=== PATIENT | male | born 1975 | race Caucasian/White ===

== ENCOUNTER 2020-05-21 08:42 | Inpatient (IN) | payer BC ==
[~2020-05-21] VITALS: Ht 182.9 cm; Wt 90.8 kg
--- NOTE | 2020-05-21 09:02 | NUR ---
INITIAL PT CONTACT. PT PRESENTS TO ED C/O SWELLING OF THE FACE AND NECK. PT STATES SYMPTOMS BEGAN WEDNESDAY, 3 DAYS AGO. PT STATES THAT SWELLING WAS INITIALLY IN HIS GUMS, PT WAS SEEN BY DENTIST AND GIVE ABX, NOW SWELLING IS WORSE AND MOVED DOWN NECK. PT C/O DIFFICULTY SWALLOWING WITHOUT PAIN MEDICATION. NO RESPIRATORY DISTRESS NOTED. MODERATE SWELLING OF THE FACE AND NECK PRESENT UPON ASSESSMENT. PT UPRIGHT ON GURNEY, AT BEDSIDE. PT DENIES ANY NEEDS AT THIS TIME. CONTINUOUS PULSE OX IN PLACE. WILL CONTINUE TO MONITOR.
[2020-05-21] MEDS ORDERED: MORPHINE SULFATE 4 MG/ML, 1ML ONE ×3 (09:29→21:07)
[2020-05-21] MEDS ORDERED: CLINDAMYCIN PMX 600MG/50ML 50 ML ONE (09:29)
[2020-05-21] MEDS ORDERED: SODIUM CHLORIDE FLUSH 10ML SYR IVF ONE (09:30)
[2020-05-21] MEDS ORDERED: CLINDAMYCIN PMX 600MG/50ML 50 ML IVPB ONE (09:30)
[2020-05-21] MEDS: MORPHINE SULFATE 4 MG/ML, 1ML IVPush PRN ×2 (09:31→11:10)
[2020-05-21 09:36] LABS: BASOPHILS % (AUTO) 0 % (0-1); EOSINOPHILS % (AUTO) 0 % (1-7); LYMPHOCYTES % (AUTO) 13 % (22-44); MEAN CORPUSCULAR HEMOGLOBIN 33.6 pg (27.5-34.5); MEAN PLATELET VOLUME 6.8 fL (7.4-10.4); MONOCYTES % (AUTO) 10 % (2-9); NEUTROPHILS % (AUTO) 76 % (42-75); PLATELET COUNT 188 x10^3/uL (130-400); RED BLOOD COUNT 4.57 x10^6/uL (4.38-5.82); RED CELL DISTRIBUTION WIDTH 13.2 % (9.4-14.8)
[2020-05-21 09:38] LABS: MD NO
[2020-05-21 09:45] LABS: ALBUMIN 3.8 g/dL (3.4-5.0); ANION GAP 4 mmol/L (5-15); CALCIUM 9.4 mg/dL (8.5-10.1); CHLORIDE 106 mmol/L (98-107); CREATININE 0.83 mg/dL (0.7-1.3)
--- NOTE | 2020-05-21 09:55 | NUR ---
PT TO CT
--- NOTE | 2020-05-21 10:03 | NUR ---
PT RETURNED FROM CT. PT REPORTS DECREASED PAIN BUT SAME "DIFFICULTY SWALLOWING". PT DENIES ANY NEEDS AT THIS TIME. CALL LIGHT IN REACH. AT BEDSIDE.
[2020-05-21] MEDS ORDERED: OMNIPAQUE 350 MG/ML, 75ML BOTTLE ONE (10:05)
--- NOTE | 2020-05-21 10:32 | NUR ---
ERP AT BEDSIDE DISCUSSING ADMISSION AND PLAN FOR TREATMENT
[2020-05-21] MEDS ORDERED: DEXAMETHASONE 4 MG/ML, 5ML ONE (10:41)
--- NOTE | 2020-05-21 10:51 | NUR ---
PT UP TO BATHROOM
[2020-05-21] MEDS ORDERED: DEXAMETHASONE 4 MG/ML, 1ML IVPush ONE (11:00)
[2020-05-21] MEDS ORDERED: SODIUM CHLORIDE FLUSH 10ML SYR IVF PRN (11:00)
--- NOTE | 2020-05-21 11:02 | NUR ---
PT TO IMAGING
--- NOTE | 2020-05-21 11:07 | NUR ---
PT RETURNED FROM IMAGING. PT SITTING UPRIGHT ON GURNEY ON CELL PHONE. PT REQUESTS MORE PAIN MEDICATION, MEDICATED PER EMAR. NO ADDITIONAL NEEDS AT THIS TIME. AT BEDSIDE AND CALL LIGHT WITHIN REACH.
[2020-05-21] MEDS ORDERED: ACETAMINOPHEN 325 MG TABLET PO PRN ×2 (11:30→20:00)
[2020-05-21] MEDS ORDERED: ONDANSETRON ODT 4 MG PO PRN (11:30)
[2020-05-21] MEDS ORDERED: POLYETHYLENE GLYCOL 17 GM PACKET PO PRN (11:30)
[2020-05-21] MEDS ORDERED: HYDROcodone/APAP 5/325 TABLET PO PRN (11:30)
[2020-05-21] MEDS ORDERED: SENNA/DOCUSATE TABLET PO PRN (11:30)
[2020-05-21] MEDS ORDERED: ONDANSETRON 2MG/ML, 2ML IVPush PRN ×2 (11:30→20:00)
--- NOTE | 2020-05-21 11:45 | NUR ---
Damien anderson in ED - 05/21/20 at 1148 by PIPPA Pt to be admitted to [facility], room 403-2. Report called to [facility].
--- NOTE | 2020-05-21 11:49 | NUR ---
Pt to be admitted to TELE 2, room 403-2. Report called to HARRISON.
[2020-05-21] MEDS: LACTATED RINGERS 1,000 ML IV SCH ×2 (12:14→21:19)
[2020-05-21 12:15] VITALS: BP 125/75
[2020-05-21] MEDS: morphine SULFATE 10 MG/ML, 1ML IVPush PRN ×8 (12:38→22:10)
[2020-05-21] MEDS: CLINDAMYCIN PMX 600MG/50ML 50 ML IV SCH ×2 (13:27→19:54)
[2020-05-21] MEDS ORDERED: LEVOFLOXACIN/PMX 750MG/150ML 150 ML IV SCH (18:00)
[2020-05-21 18:30] VITALS: BP 143/82
[2020-05-21] MEDS ORDERED: ROCURONIUM 10MG/ML,5ML ONE (19:54)
[2020-05-21] MEDS ORDERED: CEFAZOLIN 1,000 MG ONE (19:54)
[2020-05-21] MEDS ORDERED: GLYCOPYRROLATE 0.2MG/1ML, 5ML ONE (19:54)
[2020-05-21] MEDS ORDERED: DEXAMETHASONE 4 MG/ML, 1ML ONE (19:54)
[2020-05-21] MEDS ORDERED: ONDANSETRON 2MG/ML, 2ML ONE (19:54)
[2020-05-21] MEDS ORDERED: PROPOFOL 10 MG/ML, 20ML ONE (19:54)
[2020-05-21] MEDS ORDERED: SUCCINYLCHOLINE 20 MG/ML, 10ML ONE (19:54)
[2020-05-21] MEDS ORDERED: NEOSTIGMINE 1 MG/ML, 10ML ONE (19:54)
[2020-05-21] MEDS ORDERED: FENTANYL PF 100 MCG/2ML ONE (19:55)
[2020-05-21] MEDS ORDERED: EPINEPHRINE 1 MG/ML, 1ML ONE (19:58)
[2020-05-21] MEDS ORDERED: LIDOCAINE/PF 1%-EPI 1:200K, 30 ML ONE (19:58)
[2020-05-21] MEDS ORDERED: BUPIVACAINE/PF 0.25% ONE (19:58)
[2020-05-21] MEDS ORDERED: HYDROmorphone 1 MG/ML, 1ML INJ IVPush PRN (20:00)
[2020-05-21] MEDS ORDERED: FENTANYL PF 100 MCG/2ML IV PRN (20:00)
[2020-05-21] MEDS ORDERED: OXYcodone 5 MG/5 ML ORAL.SOL UDC PO PRN (20:00)
[2020-05-21] MEDS ORDERED: PROMETHAZINE 25 MG/ML, 1ML IVPush PRN (20:00)
[2020-05-21] MEDS ORDERED: PROMETHAZINE 25 MG SUPP PR PRN (20:00)
[2020-05-21] MEDS ORDERED: MIDAZOLAM 1 MG/ML, 2ML ONE (20:08)
[2020-05-21] MEDS ORDERED: LABETALOL 5MG/ML, 20ML ONE (20:43)
[2020-05-21] MEDS: LABETALOL 5MG/ML, 20ML IV PRN ×4 (20:47→21:20)
[2020-05-21] MEDS ORDERED: morphine SULFATE 10 MG/ML, 1ML ONE ×2 (21:28→21:57)
[2020-05-21] MEDS: hydrALAzine 20 MG/ML, 1ML IV PRN ×2 (21:30→21:52)
[2020-05-21] MEDS ORDERED: MIDAZOLAM 1 MG/ML, 5ML ONE (21:32)
[2020-05-21] MEDS: DIAZEPAM 5 MG/ML, 2ML IVPush PRN ×2 (21:39→21:56)
[2020-05-21] MEDS: CHLORHEXIDINE 15 ML UDC MM SCH (23:26)
[2020-05-22 00:06] VITALS: BP 128/77
[2020-05-22] MEDS: morphine SULFATE 10 MG/ML, 1ML IVPush PRN (00:26)
[2020-05-22] MEDS: CLINDAMYCIN PMX 600MG/50ML 50 ML IV SCH ×2 (01:42→08:16)
[2020-05-22] MEDS: LACTATED RINGERS 1,000 ML IV SCH (01:54)
[2020-05-22] MEDS ORDERED: HALOPERIDOL 5 MG/ML IM PRN (02:30)
[2020-05-22] MEDS: CHLORHEXIDINE 15 ML UDC MM SCH (05:28)
[2020-05-22 07:12] VITALS: BP 118/70
[2020-05-22] MEDS ORDERED: HYDR-3237 PO (08:10)
[2020-05-22] MEDS ORDERED: AMOX1TAB64 PO (08:10)
[2020-05-22] MEDS ORDERED: CHLO473M MM (08:10)
== END 2020-05-22 10:41 | disposition home or self-care (01) | DRG 137 ==
LOC: ED 08:57 → EDIP 10:54 → 4WST 11:57 → DCLOUNGE 05-22 10:36
PROVIDERS: ADMIT Family Medicine; ATTEND Hospitalist
PROC: 0J910ZZ Drainage of Face Subcutaneous Tissue and Fascia, Open Approach (ICD-10-PCS; 2020-05-21)
PROC: 0CDXXZ0 Extraction of Lower Tooth, Single, External Approach (ICD-10-PCS; principal; 2020-05-21 21:00)
DX: K04.7 Periapical abscess without sinus (principal); K12.2 Cellulitis and abscess of mouth; Z20.828 Contact with and (suspected) exposure to other viral communicable diseases; D72.829 Elevated white blood cell count, unspecified; Z88.5 Allergy status to narcotic agent; Z90.49 Acquired absence of other specified parts of digestive tract
CPT/HCPCS: 36415; 70100; 70487; 80048; 82040; 85025; 87635; G0378; J0171; J0690; J1100; J1956; J2250; J2405; J2704; J2710; J3010; J3360; Q9967; J0330; J0360; J2270; J7120